=== PATIENT | female | born 1990 | race Caucasian/White ===

== ENCOUNTER 2018-02-02 12:30 | Emergency (ER) | payer MEDICAID, OTHER ==
[~2018-02-02] VITALS: Ht 162.6 cm; Wt 54.4 kg
--- NOTE | 2018-02-02 12:35 | NUR ---
PRESENTS TO ER C/O COUGH, CONGESTION, CHEST WALL PAIN x 2 DAYS. A/OX 4, BREATHING EVEN AND UNLABORED. NO SOB, NAD, VITALS STABLE. SAFETY AND COMFORT MEASURES IN PLACE. AWAITING MD ORDERS.
[2018-02-02] MEDS ORDERED: IBUPROFEN 600 MG TABLET PO ONE ×2 (13:08→13:30)
[2018-02-02 13:49] VITALS: BP 116/81
--- NOTE | 2018-02-02 13:49 | NUR ---
Patient discharged to home in stable condition. Written and verbal after care instructions given. Patient verbalizes understanding of instruction.
== END 2018-02-02 13:49 | disposition home or self-care (01) ==
LOC: ER 12:34
DX: R05 Cough (principal); R07.89 Other chest pain; R09.81 Nasal congestion; G43.909 Migraine, unspecified, not intractable, without status migrainosus
CPT/HCPCS: 71045; 99283; A4606; Z7610